=== PATIENT | female | born 1965 | race Caucasian/White ===

== ENCOUNTER 2024-03-21 11:33 | Outpatient (OUT) | payer MEDICAID, SELFPAY ==
[2024-03-21 12:27] LABS: Thyroid Stimulating Hormone 9.397 uIU/mL (0.358-3.740)
[2024-03-22 08:12] LABS: Triiodothyronine (T3) 79 ng/dL (71-180)
== END 2024-03-21 11:34 | disposition home or self-care (01) ==
LOC: LAB 11:38
PROVIDERS: PCP Family Medicine
DX: E89.0 Postprocedural hypothyroidism (principal)
CPT/HCPCS: 36415; 84436; 84443; 84480